=== PATIENT | male | born 1995 | race African-American/Black ===

== ENCOUNTER → 2017-07-29 | Outpatient (CLI) | payer OTHER ==
[2017-07-29 14:35] LABS: Basophils % (A) 1 %; Eosinophils # (A) 0.1 k/uL (0-0.7); Eosinophils % (A) 2 %; HCT 48.8 % (39.0-53.0); Lymphocytes # (A) 2.6 k/uL (1.0-4.8); Lymphocytes % (A) 40 %; MCH 26.9 pg (25.0-35.0); MCHC 32.9 g/dL (31.0-37.0); MCV 81.8 fL (80.0-100.0); Mean Platelet Volume 7.2; Monocytes # (A) 0.3 k/uL (0-1.0); Monocytes % (A) 5 %; Neutrophils # (A) 3.3 k/uL (1.3-7.7); Neutrophils % (A) 51 %; Platelet Count 240 k/uL (150-450); RBC 5.96 m/uL (4.30-5.90); RDW 13.1 % (11.5-15.5); WBC 6.4 k/uL (3.8-10.6)
[2017-07-29 14:57] LABS: ALT 17 U/L (21-72); AST 28 U/L (17-59); Albumin 4.6 g/dL (3.5-5.0); Alkaline Phosphatase 63 U/L (38-126); Anion Gap 12 mmol/L; Blood Urea Nitrogen 10 mg/dL (9-20); Calcium 10.4 mg/dL (8.4-10.2); Carbon Dioxide 29 mmol/L (22-30); Chloride 104 mmol/L (98-107); Cholesterol 143 mg/dL (<200); Glucose 86 mg/dL (74-99); HDL Cholesterol 82 mg/dL (40-60); LDL Cholesterol,Calculated 51 mg/dL (0-99); Potassium 4.4 mmol/L (3.5-5.1); Sodium 145 mmol/L (137-145); Total Bilirubin 0.7 mg/dL (0.2-1.3); Total Protein 7.6 g/dL (6.3-8.2); Triglycerides 49 mg/dL (<150)
[2017-07-29 15:12] LABS: T4, Free (Free Thyroxine) 1.19 ng/dL (0.78-2.19)
--- NOTE | 2017-07-29 15:36 | XR ---
Thoracic spine HISTORY: Pain 2 views of the thoracic spine submitted on 3 images There is a mild spinal curvature. Thoracic vertebral bodies show preserved height and bone mineraliza tion. Disc spaces are maintained. Lower thoracic vertebral body not thought to be included on the exa m on lateral view. IMPRESSION: No acute fracture or subluxation. Additional findings above.
--- NOTE | 2017-07-29 15:39 | XR ---
Right hand HISTORY: Trauma and pain 3 views of the right hand Bone mineralization, joint spaces and alignment are maintained. IMPRESSION: No fracture or dislocation.
== END | disposition home or self-care (01) ==
LOC: LABWHC1 13:36
PROVIDERS: ATTEND Physician Assistant
DX: M43.9 Deforming dorsopathy, unspecified (principal); M54.6 Pain in thoracic spine; M79.641 Pain in right hand; Z00.00 Encounter for general adult medical examination without abnormal findings
CPT/HCPCS: 36415; 72070; 80053; 80061; 84439; 84443; 85025